=== PATIENT | male | born 1960 | race African-American/Black ===

== ENCOUNTER 2017-01-25 17:02 | Inpatient (IN) | payer OTHER ==
--- NOTE | ~2017-01-25 | DS ---
Unit #: [id number] #: [id number] Patient: PHILLIP SOTOMAYOR [id number] [facility] [address] [place] [address] [id number] MR#: [id number] NAME: PHILLIP SOTOMAYOR. ROOM: 32 Age: 56 Sex: M Admission Date: 01/25/2017 : 1960 Discharge Date: 01/29/2017 Attending Physician: Michael Lozada M.D. Primary Care Physician: Primary Care Physician No DISCHARGE SUMMARY REASON FOR ADMISSION Phillip is a 55-year-old man with a history of schizophrenia and chemical dependence, who told his therapist at a recent visit that he was suicidal with a plan to cut his wrist. He was unable to contract for safety and was admitted for stabilization. LABORATORY DATA Please see hospital chart. HOSPITAL COURSE Phillip was admitted and placed on suicide precautions. Zoloft for depression and Thorazine for psychosis were restarted. He did not require initiation of the alcohol detox protocol. He was cooperative with treatment and did request a list of nursing home houses from his secondary social studies teacher, he planned to continue follow up with [facility] and was referred to [facility] for possible inpatient care at the time of discharge. DISCHARGE DIAGNOSES [place] I: Schizophrenia, paranoid type; major depression; alcohol dependence. [place] II: No diagnosis. [place] III: None acute. BODY AFTER AXIS DISCHARGE INSTRUCTIONS The patient to follow up with [facility] and [facility]. DISCHARGE MEDICATIONS Zoloft 50 mg daily for depression; Thorazine 100 mg in the morning and 200 mg at bedtime for psychosis; and Cogentin 1 mg bedtime for EPS, prophylaxis. CONDITION AT DISCHARGE Improved. PROGNOSIS Fair to good. DIET AND ACTIVITY Unit #: [id number] #: [id number] Patient: PHILLIP SOTOMAYOR Per primary care doctor. Dictated by... Leandro RussoH/mejia TD: 04/08/2017 14:40 JOB #: [id number] DISCHARGE SUMMARY Page 1 of 1 X Michael Lozada MD X DISCHARGE SUMMARY
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
--- NOTE | ~2017-01-25 | HP ---
Unit #: [id number] #: [id number] Patient: PHILLIP SOTOMAYOR [id number] [place] [address] [id number] MR#: [id number] NAME: PHILLIP SOTOMAYOR. ROOM: P132 Age: 56 Sex: M Admission Date: 01/25/2017 : 1960 Attending Physician: Michael Lozada M.D. Admitting Physician: Michael Lozada M.D. Primary Care Physician: Primary Care Physician No HISTORY AND PHYSICAL HISTORY OF PRESENT ILLNESS Phillip is a 56 year old admitted to [address] [place] [address] with depression and verbalizing wanting to hurt himself. PAST MEDICAL HISTORY Nothing significant. PAST SURGICAL HISTORY Nothing reported. ALLERGIES No known drug allergies. SOCIAL HISTORY Smokes 2 packs per day. Drinks alcohol on a daily basis. Admits to using marijuana daily and has a history of illicit drug use. FAMILY HISTORY Medically noncontributory. REVIEW OF SYSTEMS CONSTITUTIONAL: No fever or chills. HEENT: Denies any sore throat, ear pain or runny nose. CARDIOVASCULAR: Denies chest pain, irregular heart rhythm or palpitations. CHEST: Denies shortness of breath or cough. No hemoptysis. GASTROINTESTINAL: Denies nausea, vomiting, diarrhea or chronic constipation. ENDOCRINE: Denies history of increased thirst or urination. No recent significant weight loss or gain. GENITOURINARY: Denies dysuria, frequency, or hematuria. SKIN: Denies any rashes. HEMATOLOGIC: Denies history of increased bleeding or bruising. MUSCULOSKELETAL: Denies any hot, swollen joints. No generalized muscle pain. NEUROLOGIC: Denies problems with vision or speech. No frequent, severe headaches. No numbness, tingling or weakness in any extremities. Denies loss of bladder or bowel control. CURRENT MEDICATIONS 1. Thorazine 100 mg q.a.m., 200 mg q.h.s. 2. Cogentin 1 mg q.h.s. p.r.n. 3. Milk of Magnesia p.r.n. 4. Maalox p.r.n. Unit #: [id number] #: [id number] Patient: PHILLIP SOTOMAYOR 5. Tylenol p.r.n. 6. Zoloft 50 mg daily. 7. Nicotine patch 21 mg daily. PHYSICAL EXAMINATION GENERAL: Alert, well-nourished, in no apparent distress. VITAL SIGNS: Blood pressure 124/88, heart rate 86, respirations 16, temperature 98.6. WEIGHT: 195. HEIGHT: 5 feet 11 inches. SKIN: Warm and dry without rash or lesion. HEENT: Normocephalic. TMs not viewed. Oral and nasal passages clear. Conjunctivae clear. PERRLA. EOMs intact. NECK: Supple without lymphadenopathy or thyromegaly. HEART: Regular rate and rhythm without murmur. LUNGS: Clear. ABDOMEN: Soft, nontender. : Not done. EXTREMITIES: No evidence of cyanosis, clubbing or edema. Moves all without focal deficit. NEUROLOGICAL: Unable to complete extended exam. He does move all extremities without focal deficit. Hand polystyrene molding machine tender is equal and gait is normal. IMPRESSION Psychiatric admission. RECOMMENDATIONS PSYCHIATRIC: Per psychiatrist. MEDICAL: See no contraindications to participate in facility's activities. MEDICAL PROGNOSIS Good. MEDICAL CONDITION Stable. Dictated by... Ludin JoyAJose Alfredo. for Leandro Barfield/alfredo TD: 01/28/2017 16:24 JOB #: [id number] Unit #: [id number] #: [id number] Patient: PHILLIP SOTOMAYOR HISTORY AND PHYSICAL Page 1 of 1 X Veronica Gallo HISTORY AND PHYSICAL
[~2017-01-25 17:02] MED LIST: KEFLEX PO; ORUDIS75 M1 PO
[2017-01-26 09:41] LABS: ALBUMIN SERUM 3.1 g/dL (3.5-5.0); BILIRUBIN,TOTAL 0.8 mg/dL (0.2-2.0); BUN/CREATININE RATIO 12.22; CALCIUM SERUM 8.5 mg/dL (8.4-10.2); CREATININE SERUM 0.9 mg/dL (0.6-1.4); POTASSIUM 3.8 mmol/L (3.5-5.1); PROTEIN TOTAL SERUM 5.9 g/dL (6.0-8.3)
[2017-01-26 09:42] LABS: BASOPHIL% 0.6 % (0-2.5); EOSINOPHIL# 0.1 X10e3 (0-0.7); EOSINOPHIL% 2.9 % (0.0-7.0); HEMATOCRIT 42.2 % (38.0-50.0); HEMOGLOBIN 13.8 gm/dL (13.0-16.0); LYMPHOCYTE# 2.2 X10e3 (1.0-3.5); LYMPHOCYTE% 42.9 % (17.0-45.0); MEAN CELL VOLUME 89.2 FL (83-96); MEAN CORPUSCULAR HEMOGLOBIN 29.2 PG (28-34); MEAN CORPUSCULAR HGB CONC 32.8 g/dL (30-36); MEAN PLATELET VOLUME 8.1 FL (6.5-11.5); MONOCYTE# 0.5 X10e3 (0-1.0); MONOCYTE% 10.2 % (3.0-12.0); NEUTROPHIL# 2.2 X10e3 (1.5-7.1); NEUTROPHIL% 43.4 % (40-75); PLATELET COUNT 162 X10e3 (140-420); RED BLOOD COUNT 4.73 X10e (3.90-5.60); WHITE BLOOD COUNT 5.1 X10e3 (4.0-10.5)
[2017-01-26 09:46] LABS: DIFF IND NO
[2017-01-27 09:40] LABS: URINE APPEARANCE CLEAR; URINE BILIRUBIN NEG (NEG); URINE BLOOD NEG (NEG); URINE COLOR YELLOW; URINE GLUCOSE NEG (NEG); URINE KETONE NEG (NEG); URINE LEUKOCYTE ESTERASE NEG (NEG); URINE NITRATE NEG (NEG); URINE PH 5.5 (5-8); URINE PROTEIN NEG (NEG); URINE SPECIFIC GRAVITY 1.012 (1.003-1.035)
== END 2017-01-29 13:30 | disposition home or self-care (01) | DRG 885 ==
LOC: P1S 17:02
PROVIDERS: Psychiatry & Neurology Psychiatry
DX: F20.0 Paranoid schizophrenia (principal); R45.851 Suicidal ideations; F32.9 Major depressive disorder, single episode, unspecified; F17.210 Nicotine dependence, cigarettes, uncomplicated; F10.20 Alcohol dependence, uncomplicated
CPT/HCPCS: 80053; 81003; 85025

== ENCOUNTER 2017-06-02 10:22 | Inpatient (IN) | payer OTHER ==
[~2017-06-02] VITALS: Ht 180.3 cm; Wt 81.6 kg
--- NOTE | ~2017-06-02 | PN ---
Unit #: [id number] #: [id number] Patient: PHILLIP SOTOMAYOR [id number] [facility] [address] [place] [address] [id number] I MR#: [id number] NAME: PHILLIP SOTOMAYOR ROOM: P207 Age: 56 Sex: M Admission Date: 06/02/2017 : 1960 Attending Physician: Michael Lozada M.D. Admitting Physician: Michael Lozada M.D. Primary Care Physician: Leandro Power PROGRESS NOTES DATE 06/05/2017 DISCUSSION Phillip is isolating from peers but generally cooperative with treatment. He is compliant with medications with no adverse side effects. He is alert and fully oriented with mild paranoia and ongoing suicidal ideation. He has [id number] detox symptoms today. ASSESSMENT Schizophrenia, alcohol dependence. PLAN Continue current treatment plan. Dictated by... Leandro Russo/elliot TD: 06/07/2017 09:53 JOB #: [id number] [facility] PROGRESS NOTES Page 1 of 1 X Michael Lozada MD X PROGRESS NOTE
--- NOTE | ~2017-06-02 | DS ---
Unit #: [id number] #: [id number] Patient: BRODY SOTOMAYOR [id number] [facility] [address] [place] [address] [id number] I MR#: [id number] NAME: BRODY SOTOMAYOR. ROOM: P207 Age: 56 Sex: M Admission Date: 06/02/2017 : 1960 Discharge Date: 06/06/2017 Attending Physician: Michael Lozada M.D. Primary Care Physician: Jenifer Melendez M.D. DISCHARGE SUMMARY REASON FOR ADMISSION Mr. Sotomayor is a 56-year-old man who has been staying at [facility] and has felt increasing suicidal ideation for the last couple of days due to multiple stressors. He was unable to contract for safety and admitted for stabilization. DIAGNOSTIC STUDIES LABORATORY DATA: Please see hospital chart. HOSPITAL COURSE Patient was admitted and placed on suicide precautions. The alcohol detox protocol and his home medications were restarted without incident. His diabetes was under pretty good control during the admission. He participated appropriately in unit groups and activities and on the date of discharge, he was able to contract for safety with no further psychosis, suicidal ideation or plan. DISCHARGE DIAGNOSES AXIS I: Schizophrenia, paranoid type, F20.0. Major depression. History of alcohol dependence. AXIS II: No diagnosis. AXIS III: Diabetes. INSTRUCTIONS TO PATIENT Follow up with the [facility] for medication management and primary and psychiatric care. DISCHARGE MEDICATIONS 1. Zoloft 50 mg daily for depression. 2. Depakote 500 mg at bedtime for mood stability. 3. Cogentin 1 mg as needed at bedtime for EPS. 4. Thorazine 100 mg in the morning and 200 mg at bedtime for psychosis. CONDITION AT DISCHARGE Improved. PROGNOSIS Fair to good. DIET AND ACTIVITY Per primary care doctor. Unit #: [id number] #: [id number] Patient: BRODY SOTOMAYOR Dictated by... Leandro Russo/dzh TD: 06/09/2017 16:17 JOB #: [id number] DISCHARGE SUMMARY Page 1 of 1 X Michael Lozada MD DISCHARGE SUMMARY
--- NOTE | ~2017-06-02 | PN ---
Unit #: [id number] #: [id number] Patient: BRODY SOTOMAYOR [id number] [facility] [address] [place] [address] [id number] I MR#: [id number] NAME: BRODY SOTOMAYOR ROOM: P205 Age: 56 Sex: M Admission Date: 06/02/2017 : 1960 Attending Physician: Michael Lozada M.D. Admitting Physician: Michael Lozada M.D. Primary Care Physician: Leandro Power PROGRESS NOTES DATE 06/04/2017 DISCUSSION Mr. Omalley is sleepy this morning and states that he feels it is because of his medications. Staff reports he is having minimal detox symptomatology and feels that his alcohol protocol may be unnecessary. He continues to report suicidal ideation with some psychosis and has an irritable mood with a flat affect. ASSESSMENT 1. Schizophrenia. 2. Alcohol dependence. PLAN We will discontinue the alcohol protocol and decrease his chlorpromazine to 100 mg morning and 200 mg at bedtime for less sedation. Dictated by... Leandro Russo/ismael TD: 06/05/2017 09:01 JOB #: [id number] [facility] PROGRESS NOTES Page 1 of 1 X Michael Lozada MD PROGRESS NOTE
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
--- NOTE | ~2017-06-02 | HP ---
Unit #: [id number] #: [id number] Patient: PHILLIP SOTOMAYOR [id number] [place] [address] [id number] I MR#: [id number] NAME: PHILLIP SOTOMAYOR ROOM: P205 Age: 56 Sex: M Admission Date: 06/02/2017 : 1960 Attending Physician: Michael Lozada M.D. Admitting Physician: Michael Lozada M.D. Primary Care Physician: Jenifer Melendez M.D. HISTORY AND PHYSICAL HISTORY OF PRESENT ILLNESS Phillip is a 56 year old admitted to [address] [place] [address] because of his abuse of alcohol. He is detoxing. PAST MEDICAL HISTORY Long history of alcohol abuse. PAST SURGICAL HISTORY Nothing reported. ALLERGIES No known drug allergies. SOCIAL HISTORY He smokes two packs per day. Drinks alcohol on a daily basis to excess. Admits to history of marijuana use. FAMILY HISTORY Medically noncontributory. REVIEW OF SYSTEMS CONSTITUTIONAL: No fever or chills. HEENT: Denies any sore throat, ear pain or runny nose. CARDIOVASCULAR: Denies chest pain, irregular heart rhythm or palpitations. CHEST: Denies shortness of breath or cough. No hemoptysis. GASTROINTESTINAL: Denies nausea, vomiting, diarrhea or chronic constipation. ENDOCRINE: Denies history of increased thirst or urination. No recent significant weight loss or gain. GENITOURINARY: Denies dysuria, frequency, or hematuria. SKIN: Denies any rashes. HEMATOLOGIC: Denies history of increased bleeding or bruising. MUSCULOSKELETAL: Denies any hot, swollen joints. No generalized muscle pain. NEUROLOGIC: Denies problems with vision or speech. No frequent, severe headaches. No numbness, tingling or weakness in any extremities. Denies loss of bladder or bowel control. CURRENT MEDICATIONS 1. Detox protocol 2. Zoloft 50 mg q day 3. Depakote 500 mg q.h.s. Unit #: [id number] #: [id number] Patient: PHILLIP SOTOMAYOR 4. Thorazine 200 mg q.a.m., 400 mg q.h.s. PHYSICAL EXAMINATION GENERAL: Alert, well-nourished, in no apparent distress. VITAL SIGNS: Blood pressure 138/86, heart rate 70, respirations 16, temperature 98.6. WEIGHT: 180. HEIGHT: 5 foot 11 inches. SKIN: Warm and dry without rash or lesion. HEENT: Normocephalic. TMs not viewed. Oral and nasal passages clear. Conjunctivae clear. Pupils equal, round and reactive to light and accommodation. Extraocular movements intact. NECK: Supple without lymphadenopathy or thyromegaly. HEART: Regular rate and rhythm without murmur. LUNGS: Clear. ABDOMEN: Soft, nontender. : Not done. EXTREMITIES: No evidence of cyanosis, clubbing or edema. Moves all extremities without focal deficit. NEUROLOGICAL: Grossly within normal limits. Cranial Nerves: II: Visual dotson are intact. III, IV AND : Extraocular movements are intact. Pupils are equal, round and reactive to light. V: Facial sensation is grossly normal. VII: Facial movements and expression are normal. VIII: Auditory acuity grossly intact. IX, X: Uvula is midline. Phonation is normal. XI: Patient shrugs shoulders and turns head normally. XII: Tongue protrudes in the midline. Sensory and Motor Function: Sensory and motor sensation is grossly normal. Motor: moves all extremities well. Coordination: Gait is normal. Deep Tendon Reflexes: Intact. IMPRESSION Psychiatric admission. RECOMMENDATIONS PSYCHIATRIC: Per psychiatrist. MEDICAL: I see no contraindications to participating in facility's activities. MEDICAL PROGNOSIS Good. MEDICAL CONDITION Stable. Dictated by... Veronica Gallo P.A.-C. for Leandro Barfield/catalina TD: 06/02/2017 20:54 JOB #: [id number] Unit #: [id number] #: [id number] Patient: PHILLIP SOTOMAYOR HISTORY AND PHYSICAL Page 1 of 1 X Veronica Gallo HISTORY AND PHYSICAL
== END 2017-06-06 12:04 | disposition home or self-care (01) | DRG 885 ==
LOC: P2S 12:08
PROC: HZ2ZZZZ Detoxification Services for Substance Abuse Treatment (ICD-10-PCS; principal; 2017-06-03)
DX: F20.0 Paranoid schizophrenia (principal); R45.851 Suicidal ideations; E11.9 Type 2 diabetes mellitus without complications; F32.9 Major depressive disorder, single episode, unspecified; F10.20 Alcohol dependence, uncomplicated
CPT/HCPCS: 82947